=== PATIENT | female | born 1995 | race Caucasian/White ===

== ENCOUNTER 2017-10-13 10:00 | Emergency (ER) | payer SELFPAY ==
[2017-10-13 10:02] VITALS: BP 120/67; PULSE 87; RESP 14; TEMP 98.4; O2SAT 100
--- NOTE | 2017-10-13 11:12 | PD ---
HPI . test Chief Complaint: Medical Clearance Time Seen by Provider: 10:14 Travel History International Travel<30 days: No Contact w/Intl Traveler<30days: No Traveled to known affect area: No History of Present Illness HPI 22 year old female present to the emergency department for test confirmation. Patient's tests yesterday morning and it was positive. Patient is visiting from out of town with her boyfriend. Patient states she just wanted confirmation that it wasn't a false positive so she can call her mom. Patient denies any fevers, chills, malaise, abdominal pain, vaginal discharge, vaginal bleeding, chest pain or shortness breath. Patient states her last menstrual cycle was on the 20 of August. Patient states she has never been before. She is excited about the . History Past Medical Histgory Medical History: Denies Significant Hx LMP: 08/14/17 Past Surgical History Surgical History: No Previous Surgery Social History Alcohol Use: No Tobacco Use: No Allergies-Medications (Allergen,Severity, Reaction): Coded Allergies: No Known Allergies (Unverified , 10/13/17) Reported Meds & Prescriptions Reported Meds & Active Scripts Active No Active Prescriptions or Reported Medications Review of Systems Except as stated in HPI: all other systems reviewed are Neg Physical Exam Narrative GENERAL: Well-nourished, well-developed 22-year-old female patient in no acute distress. Smiling and happy and conversing. SKIN: Focused skin assessment warm/dry. HEAD: Normocephalic. Atraumatic. EYES: No scleral icterus. No injection or drainage. NECK: Supple, trachea midline. No JVD or lymphadenopathy. CARDIOVASCULAR: Regular rate and rhythm without murmurs, gallops, or rubs. RESPIRATORY: Breath sounds equal bilaterally. No accessory muscle use. GENITOURINARY: No dysuria, no frequency, vaginal discharge or bleeding. GASTROINTESTINAL: Abdomen soft, non-tender, nondistended. MUSCULOSKELETAL: No cyanosis, or edema. BACK: Nontender without obvious deformity. No CVA tenderness. Data Data Last Documented VS Vital Signs Date Time Temp Pulse Resp B/P (MAP) Pulse Ox O2 Delivery O2 Flow Rate FiO2 10/13/17 10:02 98.4 87 14 120/67 (84) 100 MDM Medical Screen Exam Complete: Yes Emergency Medical Condition: Yes Differential Diagnosis Differential diagnoses include but not limited to confirmation, medical screening exam, medical clearance Narrative Course 22-year-old female presents emergency department to seek confirmation of a positive test. Patient has no major medical history and doesn't take any daily medication. Patient has never been before. Patient instructed that if the test is positive that she is indeed . Patient very excited and requests an ultrasound to hear the heartbeat. It was explained the patient that it is still very early in the and ultrasound is not indicated at this time without abdominal pain, cramping, vaginal bleeding or discharge. A medical screening exam was performed: At the time of evaluation the presenting medical condition was determined not to be of an emergent nature. The patient was given the option of receiving additional care, but declined. Patient was given options for additional community resources from which to obtain care. The Patient Has Been advised to seek medical attention for their presenting complaint. The patient has been advised to return to the ER at any time if an emergent condition develops. Primary Impression: Encounter for medical screening examination Scripts No Active Prescriptions or Reported Meds Disposition: 07 EDGO-ED USE ONLY Condition: Stable Maki Sandoval Oct 13, 2017 11:12
== END 2017-10-13 10:43 | disposition left against medical advice (07) ==
LOC: NEPK 10:00
DX: Z32.00 Encounter for pregnancy test, result unknown (principal)
CPT/HCPCS: 99281